=== PATIENT | male | born 1945 | race Caucasian/White ===

== ENCOUNTER 2016-09-22 14:42 | Emergency (ER) | payer OTHER, MEDICARE ==
[2016-09-22 14:56] VITALS: BP 163/83
--- NOTE | 2016-09-22 15:50 | ED UPPER/LOWER EXTREMITY COMPL ---
History of Present Illness General Chief Complaint: Lower Extremity Problems Stated Complaint: LEG SWELLING, PAIN Source: patient Exam Limitations: no limitations Vital Signs & Intake/Output Vital Signs & Intake/Output Vital Signs Date Time Temp Pulse Resp B/P Pulse O2 O2 Flow FiO2 Ox Delivery Rate 09/22 1820 100 Room Air 09/22 1456 98.3 56 20 163/83 100 Room Air Allergies Coded Allergies: NO KNOWN ALLERGIES (08/27/11) Reconcile Medications Amlodipine Besylate/Benazepril (Amlodipine-Benazepril 5-20 MG) 5 MG-20 MG CAPSULE 1 CAP PO DAILY BP (Reported) Amoxicillin/Potassium Clav (Augmentin 875-125 Tablet) 875 MG-125 MG TABLET 1 TAB PO BID cellulitis Aspirin (Ecotrin*) 81 MG TABLET.DR 1 TAB PO DAILY HEART/BLOOD (Reported) Finasteride 5 MG TABLET 1 TAB PO DAILY PROSTATE (Reported) Furosemide 40 MG TABLET 1 TAB PO PRN DIURETIC (Reported) Gabapentin 300 MG CAPSULE 1 CAP PO BID NEUROPATHY (Reported) Metformin HCl 500 MG TABLET 1 TAB PO BID DM (Reported) Metoprolol Tartrate 25 MG TABLET 1 TAB PO BID HEART (Reported) Multivitamin (Multi-Day Vitamins) 1 EACH TABLET 1 TAB PO DAILY SUPPLEMENT ( Reported) [place]-3 Fatty Acids (Fish Oil Concentrate) 1,000 MG CAPSULE 4,000 MG PO DAILY SUPPLEMENT (Reported) Rosuvastatin Calcium (Crestor) 10 MG TABLET 1 TAB PO EOD CHOLESTEROL ( Reported) Rosuvastatin Calcium (Crestor) 20 MG TABLET 1 TAB PO EOD CHOLESTEROL ( Reported) Tolterodine Tartrate (Tolterodine Tartrate ER) 4 MG CAP.ER.24H 1 CAP PO DAILY BLADDER (Reported) Ubidecarenone (Co Q-10) 100 MG CAPSULE 1 CAP PO DAILY SUPPLEMENT (Reported) Triage Note: C/O LEFT LOWER LEG PAIN RADIATING TO TOP OF FOOT X 5 DAYS (INTERMITTANT) WITH SWELLING IN FOOT. DENIES INJURY OF FALL. SENT BY [facility]. Triage Nurses Notes Reviewed? yes Onset: Gradual Duration: day(s): (5) Timing: no prior history Severity: moderate Severity Numbers: 6 Pain/Injury Location: Left: Leg, Foot, Ankle. Method of Injury: unknown Modifying Factors: Improves With: immobilization. Worsens With: movement. HPI: Patient is a 71-year-old male with history of hypertension, hyperlipidemia and diabetes presenting to the emergency department with chief complaint of increasing swelling and pain to the left lower extremity over the past 5 days. He reports that it started off with intermittent pain along the lower aspect of the left ankle last week. Over the past 2 days he's noticed increased swelling. He was recently treated for tinea pedis on the left foot. Denies any trauma or falls. Denies any lacerations to the area. No fevers or chills. No chest pain or shortness of breath. No palpitations. No history of blood clots. Denies taking any blood thinners. He was seen in a walk-in clinic prior to arrival to the hospital and was told to come to the hospital to get an ultrasound to rule out blood clots. No nausea Or vomiting. (JOSE ANDRE) Past History Travel History Traveled to [place] past 21 day No Medical History Any Pertinent Medical History? see below for history Cardiovascular: hypertension, hyperlipidemia Endocrine: diabetes Surgical History Surgical History: non-contributory Psychosocial History Who do you live with Family Services at Home None What is your primary language Citizen [place] Tobacco Use: Quit >30 days ago ETOH Use: denies use Family History Hx Contributory? No (JOSE ANDRE) Review of Systems Review of Systems Constitutional: Reports: no symptoms. Comments Review of systems: See HPI, All other systems negative. Constitutional, no chills fever or weight loss HEENT: No visual changes no sore throat no congestion Cardiovascular: No chest pain ,palpitation , orthopnea Skin, no jaundice no rashes Respiratory: No dyspnea cough sputum or hemoptysis GI: No nausea no vomiting : No dysuria No hematuria Muscle skeletal: no back pain, no neck pain, Neurologic: No numbness no confusion Psych: No stress anxiety Immunology: No splenectomy or history of AIDS (JOSE ANDRE) Physical Exam Physical Exam General Appearance: well developed/nourished, no apparent distress, alert, awake , comfortable Comments: Well-developed well-nourished person in no acute distress HEENT: Pupils equally round and reactive to light and accommodation. Nose is atraumatic. Neck: Normal inspection Back: Nontender Cardiovascular: Regular rate and rhythms no murmurs rubs or gallops, normal JVP Respiratory: Chest nontender. No respiratory distress.breath sounds clear to auscultation bilaterally Extremity: Left lower extremity has 3+ pitting edema extending from the dorsum of the left foot up to mid coles, minimal erythema noted in the same area, warm to palpation. Pedal pulses are 2+ bilaterally. Tender to palpation over the lateral left malleolus. Full range of motion of right lower extremity without edema. Neuro: Alert oriented x3, motor sensory normal Skin: No appreciable rash on exposed skin, skin is warm and dry. Psych: Mood and affect is normal, memory and judgment is normal. (GINNY MARTINEZ,JOSE) Progress Differential Diagnosis: cellulitis, compartment syndrome, contusion, DVT, fracture, gout, sprain, tendon injury Plan of Care: Orders Procedure Date/time Status PARTIAL THROMBOPLASTIN TIME 09/22 160 Complete PROTHROMBIN TIME 09/22 1603 Complete COMPREHENSIVE METABOLIC PANEL 09/22 160 Complete CBC WITHOUT DIFFERENTIAL 09/22 1603 Complete Laboratory Tests 09/22/16 1632: Anion Gap 11, Estimated GFR > 60, BUN/Creatinine Ratio 23.8, Glucose 98, Calcium 9.5, Total Bilirubin 0.6, AST 24, ALT 52, Alkaline Phosphatase 77, Total Protein 7.3, Albumin 4.4, Globulin 2.9, Albumin/Globulin Ratio 1.5, PT 11.1, INR 1.06, APTT 34, CBC w Diff NO MAN DIFF REQ, RBC 5.20, MCV 88.3, MCH 29.1, RDW 14.8 H, MPV 8.6, Gran % 54.4, Lymphocytes % 34.3, Monocytes % 8.5, Eosinophils % 2.4, Basophils % 0.4, Absolute Granulocytes 4.4, Absolute Lymphocytes 2.8, Absolute Monocytes 0.7 H, Absolute Eosinophils 0.2, Absolute Basophils 0, PUBS MCHC 33.0 Diagnostic Imaging: Viewed by Me: Radiology Read, Ultrasound. Discussed w/RAD: Radiology Read, Ultrasound. Radiology Impression: PATIENT: JADE HODGE PRESENT AGE: 71 PATIENT ACCOUNT NO: [id number] : 47 LOCATION: [facility] ORDERING PHYSICIAN: JOSE MARTINEZ SERVICE DATE: 09/22/16-160 EXAM TYPE: RAD - XRY-ANKLE 3 OR MORE VIEWS L EXAMINATION: XR ANKLE, LEFT CLINICAL INFORMATION: Pain and swelling. COMPARISON: None TECHNIQUE: AP, lateral, and mortise views of the left ankle. FINDINGS: Soft tissue swelling around the ankle. No fracture. No dislocation. Ankle mortise is congruent. No significant arthropathy of the ankle. Subtalar joint normal. There is a plantar calcaneal spur measuring about 1 cm. There is also spur at the insertion of the Achilles tendon at the posterior calcaneus. IMPRESSION: Soft tissue swelling around ankle. No acute osseous abnormality., PATIENT: JADE HODGE PRESENT AGE: 71 PATIENT ACCOUNT NO: [id number] : 47 LOCATION: [facility] ORDERING PHYSICIAN: JOSE MARTINEZ SERVICE DATE: 09/22/16 EXAM TYPE: US - US-UNILATERAL VENOUS DOPPLER EXAMINATION: US TRIPLEX LOWER EXTREMITY, LEFT CLINICAL INFORMATION: Left lower extremity edema. COMPARISON: Venous ultrasound dated 08/27/2011. TECHNIQUE: Color-flow triplex imaging with spectral analysis and compression Doppler were performed on the left lower extremity. FINDINGS: Respiratory variation, normal compression and augmented flow are noted throughout the lower extremity. The visualized common femoral vein, proximal greater saphenous vein, femoral vein, profunda femoral vein, popliteal vein and visualized mid calf venous segments show no evidence of deep venous thrombosis. There is no Roland's cyst. IMPRESSION: Normal triplex scan without evidence of deep venous thrombosis involving the left lower extremity. DICTATED BY: JACOBO JOSHI MD Comments: 09/22/2016 4:24:16 PM on arrival this and is afebrile in no acute distress. He does have left lower extremity swelling, edema and mild erythema. Contacts with cellulitis but we will obtain ultrasound to rule out DVT, we will obtain x-ray to rule out stress fracture. Patient declined pain medication.. Patient declined pain medication. 09/22/2016 6:18:57 PM patient informed of x-ray and ultrasound results. Also informed of lab work. Patient is afebrile and no elevation in white blood filled out. There is minimal erythema on the lateral aspect of the left ankle with edema. We will treat for cellulitis. Patient will follow up with his primary care physician tomorrow. Etiology of leg edema is unclear at this time, this could be venous stasis. Patient educated on elevating the affected extremity. Discussed with and he agrees with plan. (GINNY MARTINEZ,JOSE) Departure Departure Time of Disposition: 1810 Disposition: HOME OR SELF CARE Condition: Stable Clinical Impression Primary Impression: Leg edema Qualifiers: Laterality: left Qualified Code: R60.0 - Localized edema Secondary Impressions: Cellulitis Qualifiers: Site of cellulitis: extremity Site of cellulitis of extremity: lower extremity Laterality: left Qualified Code: L03.116 - Cellulitis of left lower limb Referrals: JENNIFER HAGEN,BRITTNEY Jolly (PCP/Family) Additional Instructions: Follow-up with your primary care physician tomorrow. Take Augmentin as prescribed. Elevate your leg is much as possible. Return for any worsening swelling, pain or redness or fevers. Departure Forms: Customer Survey General Discharge Information Prescriptions: Current Visit Scripts Amoxicillin/Potassium Clav (Augmentin 875-125 Tablet) 1 TAB PO BID #20 TAB (JOSE ANDRE) PA/SPECIFICATIONS CHECKER Co-Sign Statement Statement: ED Attending supervision documentation- x I saw and evaluated the patient. I have also reviewed all the pertinent lab results and diagnostic results. I agree with the findings and the plan of care as documented in the PA's/SPECIFICATIONS CHECKER's documentation. [] I have reviewed the ED Record and agree with the PA's/SPECIFICATIONS CHECKER's documentation. [] Additions or exceptions (if any) to the PAs/SPECIFICATIONS CHECKER's note and plan are summarized below: [] (CANDI HAGEN,ALECIA)
--- NOTE | 2016-09-22 16:37 | RADIOLOGY REPORT ---
EXAMINATION: XR ANKLE, LEFT CLINICAL INFORMATION: Pain and swelling. COMPARISON: None TECHNIQUE: AP, lateral, and mortise views of the left ankle. FINDINGS: Soft tissue swelling around the ankle. No fracture. No dislocation. Ankle mortise is congruent. No significant arthropathy of the ankle. Subtalar joint normal. There is a plantar calcaneal spur measuring about 1 cm. There is also spur at the insertion of the Achilles tendon at the posterior calcaneus. IMPRESSION: Soft tissue swelling around ankle. No acute osseous abnormality.
[2016-09-22 16:40] LABS: ABSOLUTE BASOPHIL COUNT 0 /CUMM (0.0-0.2); ABSOLUTE EOSINOPHIL COUNT 0.2 /CUMM (0.0-0.7); ABSOLUTE GRANULOCYTE CT 4.4 /CUMM (1.4-6.5); ABSOLUTE LYMPH COUNT 2.8 /CUMM (1.2-3.4); ABSOLUTE MONOCYTE COUNT 0.7 /CUMM (0.10-0.60); BASOPHIL % 0.4 % (0.0-2.0); EOSINOPHIL % 2.4 % (0-5); GRANULOCYTE % 54.4 % (42.2-75.2); HEMATOCRIT 45.9 % (42-52); MEAN CORPUSCULAR HGB 29.1 PG (27.0-31.0); MEAN CORPUSCULAR VOLUME 88.3 FL (80.0-94.0); MEAN PLATELET VOLUME 8.6 FL (7.4-10.4); PLATELET COUNT 226 /CUMM (130-400); RBC DISTRIBUTION WIDTH 14.8 % (11.5-14.5)
[2016-09-22] MEDS ORDERED: GABAPENTIN300 M2 PO (16:50)
[2016-09-22] MEDS ORDERED: METOPROLOL TART25 M1 PO (16:50)
[2016-09-22] MEDS ORDERED: CRESTOR10 M1 PO (16:51)
[2016-09-22] MEDS ORDERED: CRESTOR20 M2 PO (16:51)
[2016-09-22 16:52] LABS: PT 11.1 SEC (9.4-12.5); PTT 34 SEC (25-37)
[2016-09-22] MEDS ORDERED: AMLODIPINE-BEN1 EAC2 PO (16:52)
[2016-09-22] MEDS ORDERED: METFORMIN HCL500 M3 PO (16:53)
[2016-09-22] MEDS ORDERED: FINASTERIDE5 M1 PO (16:54)
[2016-09-22] MEDS ORDERED: FUROSEMIDE40 M1 PO (16:54)
[2016-09-22] MEDS ORDERED: TOLTERODINE TART4 M1 PO (16:55)
[2016-09-22] MEDS ORDERED: FISH OIL CONC1000 M1 PO (16:58)
[2016-09-22] MEDS ORDERED: CO Q-10100 MG PO (16:58)
[2016-09-22] MEDS ORDERED: ASPIRIN EC81 M1 PO (16:59)
[2016-09-22] MEDS ORDERED: MULTI-DAY VITA1 EACH PO (16:59)
--- NOTE | 2016-09-22 18:07 | ULTRASOUND REPORT ---
EXAMINATION: US TRIPLEX LOWER EXTREMITY, LEFT CLINICAL INFORMATION: Left lower extremity edema. COMPARISON: Venous ultrasound dated 08/27/2011. TECHNIQUE: Color-flow triplex imaging with spectral analysis and compression Doppler were performed on the left lower extremity. FINDINGS: Respiratory variation, normal compression and augmented flow are noted throughout the lower extremity. The visualized common femoral vein, proximal greater saphenous vein, femoral vein, profunda femoral vein, popliteal vein and visualized mid calf venous segments show no evidence of deep venous thrombosis. There is no Roland's cyst. IMPRESSION: Normal triplex scan without evidence of deep venous thrombosis involving the left lower extremity.
[2016-09-22] MEDS ORDERED: AUGMENTIN 875-1 EACH PO (18:15)
== END 2016-09-22 18:43 ==
LOC: ERH 14:42
PROVIDERS: Physician Assistant
DX: R60.0 Localized edema (principal); L03.116 Cellulitis of left lower limb
CPT/HCPCS: 73610-LT